=== PATIENT | male | born 1955 | race African-American/Black ===

== ENCOUNTER → 2016-03-30 | Outpatient (CLI) | payer OTHER | LOC: RAD 08:36 | DX: R10.9 Unspecified abdominal pain (principal); K43.9 Ventral hernia without obstruction or gangrene | CPT/HCPCS: 76705 ==

== ENCOUNTER → 2016-12-15 | Outpatient (CLI) | payer OTHER ==
--- NOTE | 2016-12-16 08:21 | RADIOLOGY REPORT (SQ) ---
EXAM DESCRIPTION: MRI RT LOWER JOINT WITHOUT COMPLETED DATE/TIME: 12/15/2016 8:42 pm REASON FOR STUDY: PAIN IN RIGHT KNEE M25.512 PAIN IN LEFT SHOULDER M25.561 PAIN IN RIGHT KNEE COMPARISON: None. TECHNIQUE: Rightknee images acquired and stored on PACS. Multiplanar images include fat sensitive s equences as T1, water sensitive sequences as FST2 or STIR, cartilage sensitive sequences as FSPD, and gradient echo sequences. LIMITATIONS: None. FINDINGS: JOINT AND BURSAE: Small joint effusion. No loose bodies. BONE CORTEX AND MARROW: No alteration of signal to suggest marrow replacement. No worrisome bone lesi ons. No occult fracture. ACL: Intact. PCL: Intact. MCL: Intact. LCL: Intact. MEDIAL MENISCUS: Complex tear posterior horn extends back into the meniscus root. Radial component a t the junction of the posterior horn and body. Mild extrusion. LATERAL MENISCUS: No tears. No abnormal signal. MEDIAL COMPARTMENT: Diffuse mild chondral thinning without focal measurable defects or subchondral cy sts. Mild osteophytes. LATERAL COMPARTMENT: Mild chondral thinning without focal defects. PATELLA: Normal location. Irregular chondromalacia patella with diffuse thinning and irregular areas of full thickness loss throughout. No subchondral cysts, however. Small osteophytes. EXTENSOR MECHANISM: Heterogeneous patellar tendon, tendinosis with prominent calcification along the tibial insertion. No disruption. SOFT TISSUES: Adjacent muscles and subcutaneous tissues normal. Normal flow void in popliteal artery and vein. OTHER: No other significant finding. IMPRESSION: 1. Medial meniscus tear. 2. Chondromalacia patella. 3. Other findings as above. TECHNICAL DOCUMENTATION: JOB ID: [id number]- All Rights Reserved
--- NOTE | 2016-12-16 08:25 | RADIOLOGY REPORT (SQ) ---
EXAM DESCRIPTION: MRI LT UPPER JOINT WITHOUT COMPLETED DATE/TIME: 12/15/2016 8:42 pm REASON FOR STUDY: PAIN IN LEFT SHOULDER M25.512 PAIN IN LEFT SHOULDER M25.561 PAIN IN RIGHT KNEE COMPARISON: None. TECHNIQUE: Left shoulder images acquired and stored on PACS. Multiplanar imaging to include fat sens itive sequences such as T1, water sensitive sequences such as FST2/STIR, cartilage sensitive sequence s such as FSPD/gradient-echo sequences. LIMITATIONS: None. FINDINGS: BONE MARROW AND CORTEX: No worrisome bone lesions or marrow replacement. No occult fractur es. JOINT OR BURSAL EFFUSION: No significant joint or bursal fluid. No suggestion of loose bodies. GLENO-HUMERAL ARTICULATION: Mild chondral thinning. No focal full-thickness defects or significant s ubchondral cysts. No subluxation or dislocation. ACROMION AND AC JOINT: Mild degenerative overgrowth. Type 2 acromion. Preserved subacromial space . ROTATOR CUFF AND INTERVAL: Mild tendinosis in the supraspinatus. Mild bursal surface fraying. No cu ff muscle atrophy. Intact rotator interval. LABRUM AND BICEPS LABRAL COMPLEX: No overt slap tear or biceps pathology. REMAINDER OF LABRUM AND IGHL : Limited assessment, grossly intact. PERIARTICULAR AND ADJACENT SOFT TISSUES: No masses or abnormal nodes. OTHER: No other significant finding. IMPRESSION: 1. Mild cuff disease, tendinosis and minimal bursal surface fraying. No high-grade or f ull-thickness tear, however. TECHNICAL DOCUMENTATION: JOB ID: [id number]- All Rights Reserved
== END ==
LOC: RAD 19:14
PROVIDERS: ATTEND Family Medicine
DX: M25.561 Pain in right knee (principal); M25.512 Pain in left shoulder

== ENCOUNTER → 2016-12-16 | Outpatient (CLI) | payer OTHER ==
--- NOTE | 2016-12-16 16:26 | RADIOLOGY REPORT (SQ) ---
EXAM DESCRIPTION: MRI CERVICAL SPINE WITHOUT COMPLETED DATE/TIME: 12/16/2016 3:42 pm REASON FOR STUDY: CERVICAL RADICULOPATHY M54.12 RADICULOPATHY, CERVICAL REGION COMPARISON: None. TECHNIQUE: Sagittal and Axial imaging includes T1, T2, STIR and gradient echo sequences. LIMITATIONS: PATIENT MOTION. FINDINGS: ALIGNMENT: Anatomic. VERTEBRAE: Intact. BONE MARROW: Normal. No marrow replacement or reactive changes. DISCS: Desiccation multiple levels. HARDWARE: None in the spine. CORD AND BASE OF BRAIN: Subtle increased T2 signal in the cord at the C5-6 level. SOFT TISSUES: No soft tissue masses. C1-C2: No significant spinal stenosis. C2-C3: No significant spinal stenosis or exit foraminal stenosis. C3-C4: Mild spinal stenosis due to disc osteophyte complex. Moderate left and severe right neural fo raminal narrowing. C4-C5: Mild spinal stenosis. Moderate neural foraminal narrowing, right greater left. C5-C6: Left paracentral disc herniation causing mild mass effect on the cord. Severe neural foramina l narrowing bilaterally. C6-C7: No significant spinal stenosis. Moderate right neural foraminal narrowing. C7-T1: No significant spinal stenosis or exit foraminal stenosis. UPPER THORACIC: Incompletely imaged. No significant spinal stenosis or exit foraminal stenosis. OTHER: No other significant finding. IMPRESSION: Mild spinal stenosis at several levels. 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 TECHNICAL DOCUMENTATION: JOB ID: [id number] [email or web address]- All Rights Reserved
== END ==
LOC: RAD 14:31
PROVIDERS: ATTEND Family Medicine
DX: M54.12 Radiculopathy, cervical region (principal)
CPT/HCPCS: 72141